=== PATIENT | female | born 2000 | race Caucasian/White ===

== ENCOUNTER → 2021-06-30 13:27 | Outpatient (CLI) | payer OTHER, SELFPAY ==
--- NOTE | 2021-07-04 12:56 | INFXCTL.NOTE ---
Attempted to notify patient (+) COVID-19 results per Phone Call. Attempt x1 unsuccessful. --------MIGUEL Jeff
== END ==
PROVIDERS: Visit Provider Nurse Practitioner
DX: U07.1 COVID-19 (principal)
CPT/HCPCS: C9803; U0003; U0005

== ENCOUNTER 2025-02-15 08:38 | Outpatient (CLI) | payer OTHER, SELFPAY ==
[2025-02-15 15:41] LABS: Coronavirus 19, PCR Not Detected (NotDetected); Influenza A, PCR Not Detected (NotDetected); Influenza B, PCR Not Detected (NotDetected)
== END 2025-02-15 23:59 | disposition home or self-care (01) ==
LOC: LAB.DROPOF 02-16 10:46
PROVIDERS: PCP Nurse Practitioner; Visit Provider Nurse Practitioner
DX: R05.9 Cough, unspecified (principal); J02.9 Acute pharyngitis, unspecified
CPT/HCPCS: 87631